=== PATIENT | female | born 1995 | race Caucasian/White ===

== ENCOUNTER → 2018-12-30 | Day surgery (SDC) | payer BC ==
[~2018-12-30] MED LIST: FENTANYL CITRATE/PF 100MCG/2 ML INJ ONE; KETAMINE HCL INJ 50 MG/ML 10 ML VIAL ONE; MIDAZOLAM HCL 2 MG/2 ML VIAL ONE; PROPOFOL IV EMULSION 10 MG/ML 50 ML VIAL ONE; [UNRECOGNIZED DRUG - OTHER] PO
--- NOTE | 2018-12-30 20:15 | Operative Report ---
DATE OF PROCEDURE: 12/30/2018 SURGEON: Vince Blas MD PROCEDURE: Esophagogastroduodenoscopy with biopsies. INDICATIONS FOR PROCEDURE: Upper abdominal pain and acid reflux. MEDICATIONS: The patient was done under MAC, please see anesthesiologist's note. PROCEDURE IN DETAIL: With the patient in left lateral decubitus position, a flexible fiberoptic Olympus gastroscope was introduced into the esophagus under direct visualization without any difficulty. There was some patchy erythema noted in distal esophagus. The scope was then advanced with ease into the stomach and mucosa overlying the antrum and the body revealed some diffuse erythema low-grade to moderate edema and biopsies were obtained and sent to stain for H pylori. The pylorus was of normal contour and shape. It was intubated with ease and the scope was advanced all the way to the second portion of the duodenum. Biopsies were obtained from the proximal second portion and duodenal bulb to rule out sprue. The scope was then withdrawn back into the stomach and retroflexed. The mucosa overlying the fundus and cardia appeared to be within normal limits. The scope was then straightened out. The stomach was decompressed. The scope was subsequently withdrawn. The patient tolerated procedure well. IMPRESSION: 1. Distal esophagitis. 2. Gastritis, biopsied. Biopsies sent to stain for H pylori. 3. Rule out sprue. PLAN: Follow up histology. Initiate Protonix 40 mg one p.o. q.a.m. a.c. Vince Blas MD [facility] [place]/MODL /[id number]
[2019-01-03 06:12] LABS: ENDOMYSIAL ANTIBODIES, IGA Negative (Negative)
== END | disposition home or self-care (01) ==
LOC: OR 12:48 → EDBD 15:30
PROVIDERS: ATTEND Internal Medicine Gastroenterology
DX: K29.70 Gastritis, unspecified, without bleeding (principal); K20.9 Esophagitis, unspecified; K21.9 Gastro-esophageal reflux disease without esophagitis; R19.7 Diarrhea, unspecified; D64.9 Anemia, unspecified; J45.909 Unspecified asthma, uncomplicated
CPT/HCPCS: 43239; 81025; 82784; 83516; 86256; J2250; J2704